=== PATIENT | female | born 1975 | race Caucasian/White ===

== ENCOUNTER 2016-12-03 22:44 | Emergency (ER) | payer OTHER ==
[2016-12-04 01:14] LABS: HEMOGLOBIN 13.9 gm/dl (12.3-15.3); RED BLOOD COUNT 4.75 M/UL (4.00-5.10); WHITE BLOOD COUNT 8.1 K/UL (4.5-11.0)
[2016-12-04 01:33] LABS: BUN/CREATININE RATIO 19 (0-10)
== END 2016-12-04 03:36 | disposition home or self-care (01) ==
LOC: ER1 22:44
PROVIDERS: Family Medicine
DX: R19.7 Diarrhea, unspecified (principal); F32.9 Major depressive disorder, single episode, unspecified
CPT/HCPCS: 36415; 80053; 80307; 81001; 82150; 83690; 85025; 99284; J7050; Q9962

== ENCOUNTER 2016-12-15 22:06 | Emergency (ER) | payer OTHER ==
[2016-12-16 05:02] LABS: HEMOGLOBIN 13.1 gm/dl (12.3-15.3); RED BLOOD COUNT 4.45 M/UL (4.00-5.10); WHITE BLOOD COUNT 7.4 K/UL (4.5-11.0)
[2016-12-16 05:17] LABS: BUN/CREATININE RATIO 12 (0-10)
== END 2016-12-16 08:25 | disposition home or self-care (01) ==
LOC: ER1 22:06
PROVIDERS: Emergency Medicine
DX: N39.0 Urinary tract infection, site not specified (principal); R51 Headache; Z98.51 Tubal ligation status
CPT/HCPCS: 36415; 70450; 80053; 81001; 83690; 84703; 85025; 87210; 96374; 99284; J0696; J7030; J7050

== ENCOUNTER → 2016-12-17 | Outpatient (CLI) | payer OTHER | LOC: LAB 21:42 → RAD 21:42 | DX: M54.5 Low back pain (principal); M54.17 Radiculopathy, lumbosacral region; N89.8 Other specified noninflammatory disorders of vagina; M43.16 Spondylolisthesis, lumbar region | CPT/HCPCS: 72100 ==